=== PATIENT | female | born 1970 | race Caucasian/White ===

== ENCOUNTER 2021-04-18 13:49 | Emergency (ER) | payer SELFPAY ==
[2021-04-18] MEDS ORDERED: NA CHLORIDE 0.9% 2,000 ML ONE (15:32)
[2021-04-18] MEDS ORDERED: FAMOTIDINE 20 MG/2 ML VIAL IV ONE (15:32)
--- NOTE | 2021-04-18 16:03 | RAD REPORT ---
EXAM DESCRIPTION: RAD - Chest Single View - 04/18/2021 3:30 pm CLINICAL HISTORY: ABDOMINAL DISTENTION COMPARISON: <Comparisons> FINDINGS: Lines: None. Lungs: No evidence of edema or pneumonia. Pleural: No significant pleural effusions or pneumothorax. Cardiac: The heart size is within normal limits. Bones: No acute fractures. Other: IMPRESSION: No acute cardiopulmonary disease.
[2021-04-18 16:11] LABS: Urine Blood Trace-intact (Negative); Urine Glucose Negative (Negative); Urine Protein 1+ (Negative); Urine Specific Gravity 1.025 (1.005-1.030)
[2021-04-18 18:08] LABS: Basophils % 0.4 % (0-1.3); Hematocrit 35.8 % (36.0-45.0); MPV 8.6 fL (7.6-11.3); RBC Red Blood Cell Count 4.06 M/uL (3.86-4.86)
[2021-04-18 18:09] LABS: Protime INR 1.15
--- NOTE | 2021-04-18 18:20 | RAD REPORT ---
EXAM DESCRIPTION: CTAbdomen Pelvis Wo Contrast - 04/18/2021 6:12 pm CLINICAL HISTORY: ABD PAIN COMPARISON: No comparisons TECHNIQUE: CT of the abdomen and pelvis was performed. All CT scans are performed using dose optimization technique as appropriate and may include automated exposure control or mA/KV adjustment according to patient size. FINDINGS: Lower chest: No acute abnormality. Liver: No acute abnormality or suspicious lesions. Biliary: No biliary ductal dilatation. Stomach: No significant focal abnormality. Duodenum: No significant focal abnormality. Pancreas: No significant abnormality. Spleen: No significant abnormality. Adrenal: No suspicious lesions. Kidney/ureter: No hydronephrosis. No renal calculi. Retroperitoneum: No retroperitoneal adenopathy. Vascular: No aneurysm. Bowel: Mild circumferential colonic wall thickening at the splenic flexure and descending colon. Norm al appendix. Peritoneum: No ascites or free air. Bladder: Grossly unremarkable. Reproductive: No adnexal masses. Bones: No acute fracture. Other: n/a IMPRESSION: Colonic wall thickening centered in the descending colon concerning for colitis. No zuri l obstruction. Normal appendix. No other acute findings.
[2021-04-18 18:26] LABS: ALT/SGPT 20 U/L (12-78); AST/SGOT 10 U/L (15-37); Albumin 3.5 g/dL (3.4-5.0); Alkaline Phosphatase 75 U/L (45-117); BUN Blood Urea Nitrogen 17 mg/dL (7-18); Bicarbonate 19 mmol/L (21-32); Bilirubin Direct 0.1 mg/dL (0-0.2); Bilirubin Total 0.4 mg/dL (0.2-1.0); Glucose Level 103 mg/dL (74-106); Lipase 77 U/L (73-393); Magnesium 2.3 mg/dL (1.8-2.4); NT PRO-BNP 55 pg/mL (<125); Potassium 3.7 mmol/L (3.5-5.1); Protein, Total 7.5 g/dL (6.4-8.2); Sodium Level 140 mmol/L (136-145); Troponin (Emerg Dept Use Only) < 0.02 ng/mL (0.0-0.045)
--- NOTE | 2021-04-18 18:42 | EDPHYS ---
Physician Documentation [facility] Name: Rosalia Melendez Age: 51 yrs Sex: Female : 1970 Arrival Date: 04/18/2021 Time: 13:51 Bed 3 Private MD: MYA Physician Catarino Bocanegra HPI: 04/18 16:36 This 51 yrs old Female presents to ER via Wheelchair with complaints of meg Dizziness, Abdominal Cramping, Nausea, leg Weakness. 16:36 This 51 yrs old Female presents to ER via Wheelchair with complaints of meg Dizziness, Abdominal Cramping, Nausea, leg Weakness. 16:36 The patient presents with dizziness, generalized weakness. Onset: The symptoms/episode meg began/occurred just prior to arrival. Historical: - Allergies: 14:50 PENICILLINS; iw 14:50 Dramamine; iw - Home Meds: 14:50 Wellbutrin Oral [Active]; iw - PMHx: 14:50 Anxiety; Depressive disorder; iw - PSHx: 14:50 None; iw - Immunization history:: Client reports receiving the 2nd dose of the Covid vaccine. - Social history:: Smoking status: Patient reports the use of cigarette tobacco products, denies chronic smoking, but will smoke occasionally. ROS: 16:37 Constitutional: Negative for fever, chills, and weight loss, Eyes: Negative for injury, meg pain, redness, and discharge, ENT: Negative for injury, pain, and discharge, Neck: Negative for injury, pain, and swelling, Cardiovascular: Negative for chest pain, palpitations, and edema, Respiratory: Negative for shortness of breath, cough, wheezing, and pleuritic chest pain, Back: Negative for injury and pain, : Negative for injury, bleeding, discharge, and swelling, MS/Extremity: Negative for injury and deformity, Skin: Negative for injury, rash, and discoloration, Psych: Negative for depression, anxiety, suicide ideation, homicidal ideation, and hallucinations, Allergy/Immunology: Negative for hives, rash, and allergies, Endocrine: Negative for neck swelling, polydipsia, polyuria, polyphagia, and marked weight changes, Hematologic/Lymphatic: Negative for swollen nodes, abnormal bleeding, and unusual bruising. 16:37 Abdomen/GI: Positive for nausea, diarrhea, abdominal cramps. 16:37 Neuro: Positive for dizziness, weakness. Exam: 16:37 Constitutional: This is a well developed, well nourished patient who is awake, alert, meg and in no acute distress. Head/Face: Normocephalic, atraumatic. Eyes: Pupils equal round and reactive to light, extra-ocular motions intact. Lids and lashes normal. Conjunctiva and sclera are non-icteric and not injected. Cornea within normal limits. Periorbital areas with no swelling, redness, or edema. ENT: Nares patent. No nasal discharge, no septal abnormalities noted. Tympanic membranes are normal and external auditory canals are clear. Oropharynx with no redness, swelling, or masses, exudates, or evidence of obstruction, uvula midline. Mucous membranes moist. Neck: Trachea midline, no thyromegaly or masses palpated, and no cervical lymphadenopathy. Supple, full range of motion without nuchal rigidity, or vertebral point tenderness. No Meningismus. Chest/axilla: Normal chest wall appearance and motion. Nontender with no deformity. No lesions are appreciated. Cardiovascular: Regular rate and rhythm with a normal S1 and S2. No gallops, murmurs, or rubs. Normal PMI, no JVD. No pulse deficits. Respiratory: Lungs have equal breath sounds bilaterally, clear to auscultation and percussion. No rales, rhonchi or wheezes noted. No increased work of breathing, no retractions or nasal flaring. Back: No spinal tenderness. No costovertebral tenderness. Full range of motion. Skin: Warm, dry with normal turgor. Normal color with no rashes, no lesions, and no evidence of cellulitis. MS/ Extremity: Pulses equal, no cyanosis. Neurovascular intact. Full, normal range of motion. Neuro: Awake and alert, GCS 15, oriented to person, place, time, and situation. Cranial nerves II-XII grossly intact. Motor strength 5/5 in all extremities. Sensory grossly intact. Cerebellar exam normal. Normal gait. Psych: Awake, alert, with orientation to person, place and time. Behavior, mood, and affect are within normal limits. 16:37 ECG was reviewed by the Attending Physician. 16:37 Abdomen/GI: Inspection: abdomen appears normal, Bowel sounds: normal, Palpation: mild abdominal tenderness, in the right lower quadrant and left lower quadrant, Liver: no appreciated palpable abnormalities, Hernia: not appreciated. Vital Signs: 14:48 BP 122 / 83; Pulse 78; Resp 16; Temp 96.8; Pulse Ox 100% ; Weight 63.5 kg; Height 5 ft. iw 2 in. (157.48 cm); 16:00 BP 118 / 56; Pulse 72; Resp 16; Pulse Ox 100% ; bp 18:00 BP 124 / 59; Pulse 84; Resp 17; Pulse Ox 100% ; bp 18:30 BP 127 / 57 Supine; Pulse 85; Resp 17; Pulse Ox 100% ; bp 18:32 BP 123 / 55 Sitting; Pulse 89; bp 18:34 BP 117 / 54 Standing; Pulse 87; bp 14:48 Body Mass Index 25.61 (63.50 kg, 157.48 cm) iw MDM: 15:15 Patient medically screened. meg 16:39 Differential diagnosis: cardiac arrhythmia, generalized weakness, hypovolemia, meg idiopathic dizziness, near-syncope, syncope. Differential diagnosis: Nonspecific abd pain, gastritis, pancreatitis, appendicitis, diverticulitis, viral gastroenteritis, gastroenteritis, appendicitis, cholecystitis, Cholelithiasis, non-specific abd pain, pancreatitis, Perf. Gastric Ulcer, Peritonitis, Pyelonephritis, urinary tract infection. Data reviewed: vital signs, nurses notes, EMS record, lab test result(s), EKG, radiologic studies, CT scan, plain films. Data interpreted: yard clerk: rate is 78 beats/min, rhythm is regular, Pulse oximetry: on room air is 100 %. Test interpretation: by ED physician or midlevel provider: ECG, plain radiologic studies. Counseling: I had a detailed discussion with the patient and/or guardian regarding: the historical points, exam findings, and any diagnostic results supporting the discharge/admit diagnosis, lab results, radiology results, the need for outpatient follow up, for definitive care, a family practitioner. 04/18 15:18 Order name: Basic Metabolic Panel [facility] 04/18 15:18 Order name: CBC with Diff [facility] 04/18 15:18 Order name: LFT's; Complete Time: 18:39 [facility] 04/18 15:18 Order name: Magnesium; Complete Time: 18:39 [facility] 04/18 15:18 Order name: NT PRO-BNP; Complete Time: 18:39 [facility] 04/18 15:18 Order name: PT-INR; Complete Time: 18:39 [facility] 04/18 15:18 Order name: Troponin (emerg Dept Use Only); Complete Time: 18:39 [facility] 04/18 15:18 Order name: XRAY Chest (1 view); Complete Time: 16:31 [facility] 04/18 15:18 Order name: Lactate; Complete Time: 18:39 [facility] 04/18 15:18 Order name: Lipase; Complete Time: 18:39 [facility] 04/18 15:18 Order name: SARS-COV-2 RT PCR (Document "Date of Onset" if Symptomatic) [facility] 04/18 15:18 Order name: Basic Metabolic Panel; Complete Time: 18:39 [facility] 04/18 16:11 Order name: Urine Dipstick-Ancillary; Complete Time: 16:31 [facility] 04/18 15:18 Order name: EKG; Complete Time: 15:19 [facility] 04/18 15:18 Order name: Cardiac monitoring; Complete Time: 15:29 [facility] 04/18 15:18 Order name: EKG - Nurse/Tech; Complete Time: 16:53 [facility] 04/18 15:18 Order name: IV Saline Lock; Complete Time: 15:29 [facility] 04/18 15:18 Order name: Labs collected and sent; Complete Time: 18:19 [facility] 04/18 15:18 Order name: O2 Per Protocol; Complete Time: 15:29 [facility] 04/18 15:18 Order name: O2 Sat Monitoring; Complete Time: 15:29 [facility] 04/18 15:18 Order name: Urine Dipstick-Ancillary (obtain specimen); Complete Time: 16:12 [facility] 04/18 17:40 Order name: PO challenge; Complete Time: 18:19 [facility] 04/18 17:40 Order name: CT Abd/Pelvis - Without Contrast; Complete Time: 18:39 [facility] 04/18 17:40 Order name: Orthostatics; Complete Time: 18:56 [facility] EC:37 Rate is 72 beats/min. Rhythm is regular. QRS [place] is Normal. CO interval is normal. QRS meg interval is normal. QT interval is normal. No Q waves. T waves are Normal. No ST changes noted. Clinical impression: Normal ECG and No evidence of ischemia. Interpreted by me. Reviewed by me. Administered Medications: 18:18 Not Given (Patient Refused): Pepcid (famotidine) 20 mg IVP once; dilute with 10 mL 0.9% bp NaCl; give over 2 minutes 18:19 Not Given (Patient Refused): NS 0.9% 1000 ml IV at 1 bolus Per protocol; 1000 mL bolus bp 18:19 Not Given (Patient Refused): NS 0.9% 1000 ml IV at 1 bolus Per protocol; 1000 mL bolus bp 19:00 Drug: Flagyl (metroNIDAZOLE) 500 mg Route: PO; bp 19:30 Follow up: Response: No adverse reaction bp 19:00 Drug: LevOfloxacin 500 mg Route: PO; bp 19:31 Follow up: Response: No adverse reaction bp Disposition Summary: 04/18/21 18:41 Discharge Ordered Location: Home meg Problem: new meg Symptoms: have improved meg Condition: Stable meg Diagnosis - Dizziness and giddiness meg - Hyperventilation meg - Weakness meg - Nausea meg - Diarrhea, unspecified meg - Left sided colitis without complications meg - Elevated white blood cell count meg Followup: meg - With: Private Physician - When: 2 - 3 days - Reason: Recheck today's complaints, Continuance of care, Re-evaluation by your physician Followup: meg - With: - When: 2 - 3 days - Reason: Recheck today's complaints, Re-evaluation by your physician Followup: meg - With: Paulina Clifford MD - When: 2 - 3 days - Reason: Recheck today's complaints, Continuance of care, Re-evaluation by your physician Discharge Instructions: - Discharge Summary Sheet meg - Diarrhea, Adult meg - Dizziness meg - Hyperventilation meg - Weakness meg - Nausea, Adult meg - Fatigue meg - Weakness, [id number] meg - Dizziness, [id number] meg - Diarrhea, Adult, Wucy-my-Tmat meg - Nausea, Adult, Vfzj-eb-[id number] meg - Colitis meg Forms: - Medication Reconciliation Form meg - Thank You Letter meg - Antibiotic Education meg - Prescription Opioid Use meg Prescriptions: - Zofran 4 mg Oral Tablet - take 1 tablet by ORAL route every 12 hours As needed; 20 tablet; Refills: 0, [facility] Product Selection Permitted - Flagyl 500 mg Oral Tablet - take 1 tablet by ORAL route every 8 hours for 7 days; 21 tablet; Refills: 0, meg Product Selection Permitted - levofloxacin 500 mg Oral Tablet - take 1 tablet by ORAL route once daily for 7 days; 7 tablet; Refills: 0, [facility] Product Selection Permitted Signatures: Dispatcher [employer] Catarino Hernandez MD MD cha Williams, Irene, RN RN iw Jude Vivar, KIZZY RN bp Corrections: (The following items were deleted from the chart) 17:46 15:19 Abdomen Pelvis W Con+CT.RAD.BRZ ordered. EDMS EDMS 18:05 15:19 BLOOD CULTURE*+BA.LAB.BRZ ordered. EDMS EDMS
--- NOTE | 2021-04-18 18:42 | ER ---
Nurse's Notes [facility] Name: Rosalia Melendez Age: 51 yrs Sex: Female : 1970 Arrival Date: 04/18/2021 Time: 13:51 Bed 3 Private MD: Diagnosis: Dizziness and giddiness;Hyperventilation;Weakness;Nausea;Diarrhea, unspecified;Left sided colitis without complications;Elevated white blood cell count Presentation: 04/18 14:48 Chief complaint: Patient states: weakness, dizziness, stomach cramping, soft BM , iw nausea, chills, had extreme weakness and shaking in hands, hit her like a wave about an hour and half ago. Coronavirus screen: Client presents with at least one sign or symptom that may indicate coronavirus-19. Ebola Screen: Patient negative for fever greater than or equal to 101.5 degrees Fahrenheit, and additional compatible Ebola Virus Disease symptoms Patient denies exposure to infectious person. Patient denies travel to an Ebola-affected area in the 21 days before illness onset. No symptoms or risks identified at this time. Initial Sepsis Screen: Does the patient meet any 2 criteria? No. Patient's initial sepsis screen is negative. Does the patient have a suspected source of infection? No. Patient's initial sepsis screen is negative. Risk Assessment: Do you want to hurt yourself or someone else? Patient reports no desire to harm self or others. Onset of symptoms was April 18, 2021. 14:48 Method Of Arrival: Wheelchair iw 14:48 Acuity: CHAPARRITA 3 iw Triage Assessment: 15:00 General: Appears in no apparent distress. uncomfortable, Behavior is cooperative, bp appropriate for age, anxious. Pain: Complains of pain in abdomen. EENT: No deficits noted. Neuro: No deficits noted. Cardiovascular: No deficits noted. Respiratory: Airway is patent Respiratory effort is even, unlabored. GI: Reports nausea. : No signs and/or symptoms were reported regarding the genitourinary system. Derm: No deficits noted. Musculoskeletal: No deficits noted. Historical: - Allergies: 14:50 PENICILLINS; iw 14:50 Dramamine; iw - Home Meds: 14:50 Wellbutrin Oral [Active]; iw - PMHx: 14:50 Anxiety; Depressive disorder; iw - PSHx: 14:50 None; iw - Immunization history:: Client reports receiving the 2nd dose of the Covid vaccine. - Social history:: Smoking status: Patient reports the use of cigarette tobacco products, denies chronic smoking, but will smoke occasionally. Screenin:00 Abuse screen: Denies threats or abuse. Denies injuries from another. Nutritional bp screening: No deficits noted. Tuberculosis screening: No symptoms or risk factors identified. Fall Risk None identified. Assessment: 15:00 Reassessment: SEE TRIAGE NOTE. bp 16:53 Reassessment: UNABLE TO OBTAIN PIV, MX ATTEMPTS BY MX STAFF. bp 18:06 Reassessment: PROVIDER UNABLE TO OBTAIN PIV. APPROVED PO INTAKE AND PHLEBOTOMY bp SAMPLING. CT CHANGED TO NON-CONTRAST. 19:24 Reassessment: PT D/C HOME AMBULATORY WITH FAMILY, DX WITH DIZZINESS AND LEFT SIDED bp COLITIS. Vital Signs: 14:48 BP 122 / 83; Pulse 78; Resp 16; Temp 96.8; Pulse Ox 100% ; Weight 63.5 kg; Height 5 ft. iw 2 in. (157.48 cm); 16:00 BP 118 / 56; Pulse 72; Resp 16; Pulse Ox 100% ; bp 18:00 BP 124 / 59; Pulse 84; Resp 17; Pulse Ox 100% ; bp 18:30 BP 127 / 57 Supine; Pulse 85; Resp 17; Pulse Ox 100% ; bp 18:32 BP 123 / 55 Sitting; Pulse 89; bp 18:34 BP 117 / 54 Standing; Pulse 87; bp 14:48 Body Mass Index 25.61 (63.50 kg, 157.48 cm) iw ED Course: 13:51 Patient arrived in ED. mr 14:50 Triage completed. iw 14:51 Arm band placed on. iw 14:58 uJde Vivar, RN is Primary Nurse. bp 15:00 Patient has correct armband on for positive identification. Bed in low position. Call bp light in reach. Side rails up X2. 15:15 Catarino Bocanegra MD is Attending Physician. meg 15:30 XRAY Chest (1 view) In Process Unspecified. EDMS 18:13 CT Abd/Pelvis - Without Contrast In Process Unspecified. EDMS 18:41 Roberto Garrido DO is Referral Physician. meg 18:41 Paulina Clifford MD is Referral Physician. meg 19:26 No provider procedures requiring assistance completed. Patient did not have IV access bp during this emergency room visit. Administered Medications: 18:18 Not Given (Patient Refused): Pepcid (famotidine) 20 mg IVP once; dilute with 10 mL 0.9% bp NaCl; give over 2 minutes 18:19 Not Given (Patient Refused): NS 0.9% 1000 ml IV at 1 bolus Per protocol; 1000 mL bolus bp 18:19 Not Given (Patient Refused): NS 0.9% 1000 ml IV at 1 bolus Per protocol; 1000 mL bolus bp 19:00 Drug: Flagyl (metroNIDAZOLE) 500 mg Route: PO; bp 19:30 Follow up: Response: No adverse reaction bp 19:00 Drug: LevOfloxacin 500 mg Route: PO; bp 19:31 Follow up: Response: No adverse reaction bp Outcome: 18:41 Discharge ordered by . meg 19:26 Discharged to home ambulatory, with family. bp 19:26 Condition: stable 19:26 Discharge instructions given to patient, Instructed on discharge instructions, follow up and referral plans. medication usage, Demonstrated understanding of instructions, follow-up care, medications, Prescriptions given X 3. 19:31 Patient left the ED. bp Signatures: Dispatcher [employer] EDMS Ctaarino Bocanegra MD MD cha Rivera, Arely mr Peri Batres, RN RN Jude Mary RN RN bp
[2021-04-18] MEDS ORDERED: metroNIDAZOLE 500 MG TABLET ONE (19:23)
[2021-04-18] MEDS ORDERED: levoFLOXacin 500 MG TAB ONE (19:23)
[2021-04-18 19:38] VITALS: TEMP 96.8; O2SAT 100
[2021-04-18 19:44] VITALS: BP 117/54
[2021-04-18 20:48] LABS: Blood Morphology Comment NOT SEEN (NOT SEEN); Platelet Estimate ADEQ; White Blood Cell Scan OK (OK)
== END 2021-04-18 19:31 | disposition home or self-care (01) ==
LOC: ER 13:49
DX: R06.4 Hyperventilation (principal); R53.1 Weakness; K51.50 Left sided colitis without complications; R11.0 Nausea; R19.7 Diarrhea, unspecified; F32.A Depression, unspecified; F17.210 Nicotine dependence, cigarettes, uncomplicated; Z88.0 Allergy status to penicillin; Z88.8 Allergy status to other drugs, medicaments and biological substances
CPT/HCPCS: 36415; 71045; 74176; 80048; 80076; 81003; 83605; 83690; 83735; 83880; 84484; 85025; 85610; 93005; 99283; J7030; U0003